=== PATIENT | male | born 1960 | race Caucasian/White ===

== ENCOUNTER 2021-03-14 13:59 | Outpatient (CLI) | payer OTHER | END 2021-03-14 14:00 | disposition home or self-care (01) | LOC: CSHMRI 13:59 | PROVIDERS: ATTEND Family Medicine | DX: G43.009 Migraine without aura, not intractable, without status migrainosus (principal) | CPT/HCPCS: 70553 ==

== ENCOUNTER 2023-04-01 22:05 | Emergency (ER) | payer OTHER ==
[2023-04-01 22:53] LABS: #Basophils 0.1 10x3/uL (0.0-0.2); #Eosinphils 0.1 10x3/uL (0.0-0.5); #Monocytes 0.6 10x3/uL (0.0-1.1); #Neutrophils 6.3 10x3/uL (1.5-8.4); %Basophils 0.7 % (0.0-2.0); %Eosinophils 1.4 % (0.0-6.0); %Lymphocytes 19.1 % (18.0-47.0); %Monocytes 6.4 % (0.0-10.0); %Neutrophils 71.6 % (40.0-75.0); Hematocrit 41.5 % (38.8-50.0); Hemoglobin 14.3 g/dL (13.5-17.5); Mean Corpuscular HGB CONC 34.5 g/dL (32.0-36.0); Mean Corpuscular Hemoglobin 30.3 pg (27.0-33.0); Mean Corpuscular Volume 87.9 fl (81.2-95.1); Mean Platelet Volume 9.6 fl (7.4-10.4); Platelet Count 247 10x3/uL (150-450); RBC Distribution Width 12.8 % (11.5-14.5); Red Blood Cell (RBC) Count 4.72 10x6/uL (4.32-5.72); White Blood Cell (WBC) Count 8.9 10x3/uL (3.5-10.5)
[2023-04-01 23:07] LABS: ALT (SGPT) 22 U/L (8-55); Albumin 4.2 g/dL (3.4-4.8); Alkaline Phosphatase 82 U/L (40-110); Anion Gap 16 mmol/L (10-20); BUN (Urea Nitrogen) 22 mg/dL (8.4-25.7); Bilirubin, Total 0.4 mg/dL (0.2-1.2); Calc. Creatinine Clearance 0 mL/min (70-130); Calcium 9.3 mg/dL (7.8-10.44); Carbon Dioxide 19 mmol/L (23-31); Chloride 106 mmol/L (98-107); Estimated GFR 75; Globulin 3.3 g/dL (2.4-3.5); Glucose 124 mg/dL (80-115); Potassium 4.2 mmol/L (3.5-5.1); Protein, Total 7.5 g/dL (5.8-8.1); Sodium 137 mmol/L (136-145)
[2023-04-01 23:10] LABS: AST (SGOT) 22 U/L (5-34)
== END 2023-04-01 23:56 | disposition home or self-care (01) ==
LOC: CSHERS 22:05
DX: K91.840 Postprocedural hemorrhage of a digestive system organ or structure following a digestive system procedure (principal); E78.00 Pure hypercholesterolemia, unspecified; I10 Essential (primary) hypertension; Z79.899 Other long term (current) drug therapy
CPT/HCPCS: 80053; 85025; 86900; 86901; 99283